=== PATIENT | female | born 1955 | race Caucasian/White ===

== ENCOUNTER 2017-10-02 08:48 | Day surgery (SDC) | payer OTHER, MEDICAID, SELFPAY ==
--- NOTE | 2017-09-27 16:25 | PM.PREOP ---
Pre-operative Note Interval Note Pre-op Check: History & Physical Reviewed by Physician
--- NOTE | 2017-09-27 16:26 | PM.OP.1 ---
Procedure & Clinicians Procedure: Date of service: October 02, 2017 Preoperative diagnoses: 1. Right nuclear sclerotic and cortical with astigmatism Cataract Postoperative diagnoses: 1. Cataract surgery with toric intraocular lens implant and phacoemulsification Procedure: Phacoemulsification with posterior chamber intraocular lens implant Surgeon: Wilma Rudd MD Complications: None Specimen: None Implant: [id number]+23.0,axis 086 degrees Blood loss: None Anesthesia: Retrobulbar with monitored standby Anesthesiologist: Dr. Aileen M.D. Description of procedure: Patient is a female year old with decreased vision due to cataract which is affecting activities of daily living. She wants surgery to improve vision. She was taken to the operating room and given IV sedation. Proparacaine drops placed and indeliable ink arce at the 90 and 180 degree meridians. A retrobulbar block insert consisting of 6 cc of 2% xylocaine without epinephrine mixed half and half with 0.5% Marcaine with 1 cc of hyaluronidase added is placed between the medial and lateral 1/3 of the inferior orbital rim. Lid akinesia is obtain with 1% xylocaine with epinephrine infiltrated along the lid margin. The eye is manually massaged for 30 sec, prepped using Betadine solution, and draped in the usual sterile fashion. Temporal approach was made, a 1 mm side-port incision was made at the 7:30 position. Phenylephrine 1.5% mixed with 1% xylocaine 0.2 cc was placed into the anterior chamber. Viscoat followed by Jenelle was then placed. A 2.6 mm clear incision with a 2.6 mm blade was placed at the 170 degree meridian. A 360 degree capsulorrhexis style capsulotomy was then performed with a cystitome needle on a Healon. Hydrodelineation and hydrodissection were performed. The phacoemulsification unit is introduced, and sculpting notice used to groove the central lens. It is then removed in chopping mode. Epi nucleus is removed with epinuclear mode and irrigation aspiration was used to remove the peripheral cortex. The posterior capsule is polished. The intraocular lens is selected, inspected, power confirmed, and placed in the posterior chamber. The pupil was not constricted. The wound was stromally hydrated and tested for leaks, there was none it was left sutureless. Vigamox 0.1 cc was placed into the anterior chamber. Kenalog 0.2 cc was placed in the superior subconjunctival space. A drop of antibiotic and was placed and the eye was patched and shielded. The patient was stable and returned to the recovery room in excellent condition. Dictated by: Wilma Rudd MD Copy to: [facility] Same procedure as scheduled: Yes
[2017-10-02 10:29] VITALS: BP 105/71; PULSE 58; RESP 16; TEMP 36.5; O2SAT 98; BMI 24.0
[2017-10-02] MEDS: PROPARACAINE 0.5% OPHTH SOL 2 DROPS EYE-OP (10:30)
[2017-10-02] MEDS: CATARACT EYE COMPOUND (10 DROPS/SYRINGE) 3 DROPS EYE-OP (10:42)
[2017-10-02] MEDS: LIDOCAINE 1% W/EPI INJ 20 ML INJ (11:25)
[2017-10-02] MEDS: BALANCED SALT IRRIG SOLN NO.2 15 ML IRRIG.SOLN IRR (11:25)
[2017-10-02] MEDS: CHONDROIDTIN/SOD HYALURONATE 1.05 ML SYRINGE INTRAOCULA (11:25)
[2017-10-02] MEDS: HYALURONATE SODIUM 10 MG/ML SYRINGE INJ (11:25)
[2017-10-02] MEDS: NEOMYCIN/POLY/DEX OPHTH OINT 1 APPLIC EYE-RIGHT (11:26)
[2017-10-02] MEDS: MOXIFLOXACIN OPHTH DROPS 3 ML BOTTLE 2 DROPS INJ (11:26)
[2017-10-02] MEDS: TRIAMCINOLONE 50 MG/5 ML VIAL INJ (11:26)
[2017-10-02] MEDS: PHENYLEPHRINE/LIDOCAINE 3ML VIAL (OR) EYE-OP (11:26)
[2017-10-02] MEDS: TRYPAN BLUE 0.5 ML SYRINGE INJ (11:27)
[2017-10-02] MEDS: LIDOCAINE 2% 4 ML, BUPIVACAINE 0.5% (PF) 4 ML, HYALURONIDASE 150 UNIT INJ (11:27)
[2017-10-02] MEDS: BALANCED SALT IRRIG SOLN NO.2 500 ML, EPINEPHrine 1 MG IRR (11:27)
[2017-10-02 11:47] VITALS: BP 138/71; PULSE 58; RESP 16; TEMP 36.2; O2SAT 99
--- NOTE | 2017-10-02 11:55 | P.DS_ITS ---
History of Present Illness Chief complaint: rt cataract toric [id number] Discharge Providers Discharge provider: Wilma Rudd MD Exam Vital Signs (past 8 hours): Vital Signs - 8 hr 3 10/02/17 10:29 Temperature 97.7 F Pulse Rate 58 L Respiratory Rate 16 Blood Pressure 105/71 Pulse Oximetry 98 Pulse Oximetry 98 Oxygen Delivery Method Room Air Discharge Plan Discharge Plan Patient Disposition: Home, Self-Care Discharge Med Rec/Prescriptions Prescriptions: No Action No Known Home Medications RF: 0 Discharge Orders: Discharge (Order); Ordered 10/02/17 Ordered By: Wilma Rudd Visit Report/Discharge Packet Stand Alone Forms: Surgery Discharge Discharge Data Attending Provider: Wilma Rudd
== END 2017-10-02 12:13 | disposition home or self-care (01) ==
LOC: OR 08:51
PROVIDERS: Visit Provider Ophthalmology
DX: H25.11 Age-related nuclear cataract, right eye (principal); H52.201 Unspecified astigmatism, right eye
CPT/HCPCS: J0171; J2704; J3301; J3470; V2787

== ENCOUNTER 2017-11-13 10:36 | Day surgery (SDC) | payer OTHER, MEDICAID, SELFPAY ==
--- NOTE | 2017-11-07 17:32 | PM.PREOP ---
Pre-operative Note Interval Note Pre-op Check: History & Physical Reviewed by Physician
--- NOTE | 2017-11-07 17:33 | PM.PROC.1 ---
Procedures Date/Time Date of procedure: 11/13/17 Time of procedure: 01:00
[2017-11-13] MEDS: PROPARACAINE 0.5% OPHTH SOL 2 DROPS EYE-OP (10:54)
[2017-11-13] MEDS: CATARACT EYE COMPOUND (10 DROPS/SYRINGE) 3 DROPS EYE-OP (10:54)
[2017-11-13 10:57] VITALS: BP 103/68; PULSE 52; RESP 16; TEMP 36.9; O2SAT 98; BMI 25.7
--- NOTE | 2017-11-13 11:54 | PM.PREOP ---
Pre-operative Note Interval Note Pre-op Check: Yes History & Physical Reviewed by Physician Changes: No
--- NOTE | 2017-11-13 11:54 | PM.OP.1 ---
Procedure & Clinicians Procedure: Left female cataract surgery. See operative note.
--- NOTE | 2017-11-13 11:59 | PM.OP.1 ---
Procedure & Clinicians Procedure: November 13, 2017 Preoperative diagnoses: 1. Nuclear sclerosis Cataract 2. astigmatism which she elects to correct with a toric intraocular lens Postoperative diagnoses: 1. Cataract status phacoemulsification toric intraocular intraocular lens implant for astigmatism. Procedure: Phacoemulsification with posterior chamber intraocular lens implant Surgeon: Wilma Rudd MD Complications: None Specimen: None Implant:[id number] [place] 099. Blood loss: None Anesthesia: Retrobulbar with monitored standby Anesthesiologist: Blair Boothe M.D. Description of procedure: Patient is a 62 year old female with decreased vision due to cataract which is affecting activities of daily living. She wants surgery to improve vision. She has taken to the operating room and given IV sedation. Proparacaine drops are placed an indelible ink arce placed at the 90 and 80 degree meridian. A retrobulbar block insert consisting of 6 cc of 2% xylocaine without epinephrine mixed half and half with 0.5% Marcaine with 1 cc of hyaluronidase added is placed between the medial and lateral 1/3 of the inferior orbital rim. Lid akinesia is obtain with 1% xylocaine with epinephrine infiltrated along the lid margin. The eye is manually massaged for 30 sec, prepped using Betadine solution, and draped in the usual sterile fashion. Temporal approach was made, a 1 mm side-port incision was made at the 12 oclock meridian. Phenylephrine 1.5% mixed with 1% xylocaine 0.2 cc was placed into the anterior chamber. Viscoat followed by Healon was then placed. A 2.6 mm clear incision with a 2.6 mm blade was placed at the 3 oclock meridian. A 360 degree capsulorrhexis style capsulotomy was then performed with a cystitome needle on a Healon. Hydrodelineation and hydrodissection were performed. Short axial length and slight discomfort so additonal phenylephrine and lidocaine placed.The phacoemulsification unit is introduced, and sculpting notice used to groove the central lens. It is then removed in chopping mode. Epi nucleus is removed with epinuclear mode and irrigation aspiration was used to remove the peripheral cortex. The posterior capsule is polished. The intraocular lens is selected, inspected, power confirmed, and placed in the posterior chamber at the 099 degree meridian.. The pupil was not constricted. The wound was stromally hydrated and tested for leaks, there was none and was left sutureless. Vigamox 0.1 cc was placed into the anterior chamber. Kenalog 0.2 cc was placed in the superior subconjunctival space. A drop of antibiotic and was placed and the eye was patched and shielded. The patient was stable and returned to the recovery room in excellent condition. Dictated by: Wilma Rudd MD Copy to: [facility]
[2017-11-13] MEDS: BALANCED SALT IRRIG SOLN NO.2 15 ML IRRIG.SOLN IRR (12:47)
[2017-11-13] MEDS: MOXIFLOXACIN OPHTH DROPS 3 ML BOTTLE 2 DROPS INJ (12:48)
[2017-11-13] MEDS: CHONDROIDTIN/SOD HYALURONATE 1.05 ML SYRINGE INTRAOCULA (12:48)
[2017-11-13] MEDS: LIDOCAINE 1% W/EPI INJ 20 ML INJ (12:48)
[2017-11-13] MEDS: HYALURONATE SODIUM 10 MG/ML SYRINGE INJ (12:48)
[2017-11-13] MEDS: NEOMYCIN/POLY/DEX OPHTH OINT 1 APPLIC EYE-LEFT (12:49)
[2017-11-13] MEDS: PHENYLEPHRINE/LIDOCAINE 3ML VIAL (OR) EYE-OP (12:49)
[2017-11-13] MEDS: OFLOXACIN 0.3% OPHTH 5 ML 2 DROPS EYE-LEFT (12:49)
[2017-11-13] MEDS: TRIAMCINOLONE 50 MG/5 ML VIAL INJ (12:50)
[2017-11-13] MEDS: LIDOCAINE 2% 4 ML, BUPIVACAINE 0.5% (PF) 4 ML, HYALURONIDASE 150 UNIT INJ (12:50)
[2017-11-13 13:19] VITALS: BP 122/81; PULSE 60; RESP 15; TEMP 36.2; O2SAT 97
--- NOTE | 2017-11-13 13:42 | SUR.PHASEII ---
Vital signs complete in Phase II, refer to tracker page for results
== END 2017-11-13 13:43 | disposition home or self-care (01) ==
LOC: OR 10:38
PROVIDERS: Visit Provider Ophthalmology
DX: H25.12 Age-related nuclear cataract, left eye (principal); H52.202 Unspecified astigmatism, left eye
CPT/HCPCS: J2250; J2704; J3010; J3301; J3470; V2787